=== PATIENT | male | born 1980 | race Hispanic/Latino ===

== ENCOUNTER 2018-05-11 17:10 | Inpatient (IN) | payer SELFPAY ==
[2018-05-11 18:15] LABS: Hemoglobin 13.6 g/dL (14.0-18.0); Mean Corpuscular HGB CONC 34.2 g/dL (32.0-36.0); Mean Corpuscular Hemoglobin 29.4 pg (27.0-31.0); Mean Platelet Volume 7.7 fL (7.4-10.4); Platelet Count 251 thou/uL (130-400); RBC Distribution Width 11.2 % (11.5-14.5); Red Blood Cell (RBC) Count 4.64 mill/uL (4.70-6.10); White Blood Cell (WBC) Count 6.8 thou/uL (4.8-10.8)
[2018-05-11 18:35] LABS: Band 13 % (5-11); Eosinophils 1 % (0-10); Lymphocytes 3 % (21-51); MDiff Complete? YES; Monocytes 2 % (0-10); Neutrophil 81 % (42-75); PLT Morphology Comment Appears Adequate
[2018-05-11 18:41] LABS: ALT (SGPT) 63 U/L (8-55); AST (SGOT) 52 U/L (5-34); Albumin 3.8 g/dL (3.5-5.0); Alkaline Phosphatase 102 U/L (40-150); Anion Gap 12 mmol/L (10-20); BUN (Urea Nitrogen) 12 mg/dL (8.9-20.6); Bilirubin, Total 1.5 mg/dL (0.2-1.2); Calc. Creatinine Clearance 0 mL/min (70-130); Calcium 9.3 mg/dL (7.8-10.44); Carbon Dioxide 25 mmol/L (22-29); Chloride 100 mmol/L (98-107); Estimated GFR-MDRD Greater than 90; Globulin 3.8 g/dL (2.4-3.5); Glucose 90 mg/dL (70-105); Potassium 4.2 mmol/L (3.5-5.1); Protein, Total 7.6 g/dL (6.0-8.3); Sodium 133 mmol/L (136-145)
--- NOTE | 2018-05-11 19:17 | RAD ---
RADIOGRAPH CHEST 1 VIEW: 05/11/18 HISTORY: 38-year-old male with fever. FINDINGS: The visualized lung daniel are clear. The cardiomediastinal silhouette and hilar shadows are normal. The lateral costophrenic angles are sharp. The osseous structures appear normal. There is no pneu mothorax. IMPRESSION: Negative. spencer [] POS: HARMEET
--- NOTE | 2018-05-11 19:20 | CT ---
CT BRAIN NONCONTRAST: 05/11/18 HISTORY: 38-year-old male with headache. FINDINGS: The ventricles are normal in size and configuration. There is no midline shift or any other mass eff ect. There is no evidence of acute intracranial hemorrhage, large cortical infarct, or extraaxial fl uid collection. The spann matter /white matter differentiation is maintained. The calvarium is intac t. The tympanomastoid cavities, and the upper portions of the paranasal sinuses included in these im ages, are grossly clear. IMPRESSION: Normal. jn [] POS: HARMEET
[2018-05-11 20:31] LABS: CKMB 0.1 ng/mL (0-6.6); Troponin I Less than 0.010 ng/mL (< 0.028)
[2018-05-11 20:57] LABS: Bilirubin Negative (Negative); Blood, Urine Negative (Negative); Clarity CLEAR (Clear); Glucose, Urine (Dipstick) Negative (Negative); Leukocyte Negative (Negative); Nitrite Negative (Negative); Protein, Urine (Dipstick) Negative (Neg-Trace); Specific Gravity, Urine 1.014 (1.002-1.036); Urobilinogen > or = 8.0 mg/dL (0.2-1.0)
[2018-05-11] MEDS ORDERED: Acetaminophen 500 MG TAB ONE (22:08)
[2018-05-11] MEDS ORDERED: Piperacillin/Tazobactam 4.5 GM VIAL ONE (22:08)
[2018-05-11 22:42] LABS: Hemoglobin 12.8 g/dL (14.0-18.0); Mean Corpuscular HGB CONC 34.5 g/dL (32.0-36.0); Mean Corpuscular Hemoglobin 29.9 pg (27.0-31.0); Mean Corpuscular Volume 86.7 fL (78.0-98.0); Mean Platelet Volume 7.6 fL (7.4-10.4); Platelet Count 221 thou/uL (130-400); RBC Distribution Width 11.2 % (11.5-14.5); Red Blood Cell (RBC) Count 4.27 mill/uL (4.70-6.10); White Blood Cell (WBC) Count 6.7 thou/uL (4.8-10.8)
[2018-05-11] MEDS ORDERED: Vancomycin HCl 1.25 GM in Sodium Chloride 0.9% 250 ML 250 ML IVPB SCH (22:45)
[2018-05-11 22:58] LABS: Band 12 % (5-11); Eosinophils 1 % (0-10); Lymphocytes 18 % (21-51); MDiff Complete? YES; Monocytes 14 % (0-10); Neutrophil 55 % (42-75)
--- NOTE | 2018-05-11 23:21 | ULT ---
ULTRASOUND ABDOMEN COMPLETE: DATE: 05/11/18 TIME: 10:52 p.m. HISTORY: 38-year-old female with elevated LFTs, anorexia, and fever of unknown origin. FINDINGS: Liver: Echogenicity within normal limits. The right lobe of the liver appears slightly prominent. Gallbladder: Wall thickness at upper limits of normal, 2 to 3 mm. No gallstone identified. No pericho lecystic fluid. Low intraluminal echoes which may represent sludge. Common duct: 3 mm Spleen: 14 x 5.5 x 5.5 cm with slightly lobulated hilum. Pancreas: Mostly obscured by shadowing from bowel gas. Kidneys: No hydronephrosis. Abdominal aorta: No aneurysm. Inferior vena cava: Unremarkable. IMPRESSION: 1. No evidence of cholelithiasis. 2. Possible small amount of gallbladder sludge. 3. Borderline or mild hepatomegaly. 4. Borderline splenomegaly. TRISTIAN Gasca POS: HARMEET
[2018-05-11] MEDS ORDERED: Sodium Chloride 0.9% 1,000 ML IV SCH (23:45)
[2018-05-12] MEDS ORDERED: diphenhydrAMINE 25 MG CAP PO SCH (00:15)
[2018-05-12 02:02] VITALS: BMI 28.1
[2018-05-12] MEDS ORDERED: Vancomycin HCl 1 GM in Premix Bag 1 BAG IVPB SCH (02:15)
[2018-05-12] MEDS ORDERED: Bisacodyl 5 MG TAB PO PRN (02:17)
[2018-05-12] MEDS: Sodium Chloride 0.9% 1,000 ML IV SCH ×2 (02:38→12:40)
--- NOTE | 2018-05-12 02:50 | HP ---
PRIMARY CARE PROVIDER: Anjelica Matute M.D. CHIEF COMPLAINT: Fevers. HISTORY OF PRESENT ILLNESS: Mr. Black is a pleasant 38-year-old gentleman who was seen at [facility] on 05/12/2018. He reports that 2 weeks ago, he started having fevers. He describes them as occurring on a daily bas is, as high as 103 degrees Fahrenheit. He cannot recall any factors that bring on the fevers or reli lou the fevers. He reports that he was working outdoors when it first started, and he attributed it to heat exertion. He also reports on and off headaches, but is unable to describe it further. He re ports that he has loss of appetite as well as 10-pound weight loss since his symptoms started. He al so started having nausea and vomiting over the last 24 hours. He denies any cough. He denies any ur inary symptoms. He denies any diarrhea. REVIEW OF SYSTEMS: All other systems reviewed and found to be negative. PAST MEDICAL HISTORY: None. PAST SURGICAL HISTORY: Right knee surgery and mole removal from the eye. SOCIAL HISTORY: The patient denies tobacco use, alcohol use or recreational drug use. FAMILY HISTORY: No family history of premature coronary artery disease. ALLERGIES: No known drug allergies. CURRENT MEDICATIONS: None. PHYSICAL EXAMINATION: GENERAL: Mr. Black is awake and alert, not in acute distress. VITAL SIGNS: Blood pressure is 98/61, pulse is 82, his breathing at rate of 16, and saturating 96% o n room air. Temperature is currently 99.3 degrees Fahrenheit. In the emergency room, he had T-max o f 101.5 degrees Fahrenheit. His pulse was also as high as 100 in the emergency room. EYES: No scleral icterus. No conjunctival pallor. ENT: Moist mucosal membranes, no oropharyngeal erythema or exudates. NECK: Supple, nontender, trachea is midline. RESPIRATORY: Accessory muscles of breathing are not active. Chest wall movements are symmetric bila terally. LUNGS: Clear to auscultation without wheeze, rhonchi or crepitations. CARDIOVASCULAR: S1 and S2 are heard, regular. Peripheral pulses palpable. No carotid bruit, no per icardial rub. ABDOMEN: Soft, nontender, bowel sounds are heard, no hepatomegaly, no splenomegaly. SKIN: No rashes or subcutaneous nodules. NEUROLOGIC: Cranial nerves II-XII intact, deep tendon reflexes 2+. No meningeal signs. MUSCULOSKELETAL: Power is 5/5 in all 4 extremities. LYMPHATIC: No cervical lymphadenopathy. PSYCHIATRIC: Normal mood, normal affect, patient is oriented to person, place, and time. LABORATORY DATA: Mr. Rosenthal labs and investigations were reviewed. He had a chest x-ray, which d id not show any pulmonary infiltrates. He also had noncontrast CT scan of the brain, which was vaughn l. He also had abdominal ultrasound, which showed possible small amount of gallbladder sludge, borde rline of mild hepatomegaly and borderline splenomegaly. He has white count 6800, of which 81% are ne utrophils and 13% are bands neutrophils, normocytic anemia with hemoglobin 13.6, normal platelet coun t, decreased sodium of 133, normal potassium, normal creatinine, normal lactic acid, normal uric acid , elevated total bilirubin of 1.5, elevated AST of 52, elevated ALT of 63, normal alkaline phosphatas e, elevated C-reactive protein of 15.47, normal albumin and ESR of 39. ASSESSMENT AND PLAN: Mr. Black is a pleasant 38-year-old gentleman who was seen at [facility] on 05/12/2018. His problem list includes: 1. Sepsis: Mr. Black's presentation meets the criteria for sepsis, source unknown as yet, but cou ld be in the blood stream. He will be admitted to the hospital for further management, including emp iric intravenous antibiotics. Given daily fevers, we will also check malaria smear. We will consult Infectious Disease Service for opinion and help with management. 2. Hyponatremia: Mild, we will recheck. 3. Abnormal liver function tests. LFTs are slightly abnormal. Abdominal ultrasound does not show a ny significant abnormalities. We will recheck his liver function tests and proceed as needed. The p atient denies any abdominal pain. Many thanks for allowing me to participate in your patient's care. Please feel free to contact me wi th any questions or concerns. LEVEL OF RISK: Moderate. LEVEL OF COMPLEXITY: Moderate.
[2018-05-12] MEDS: Piperacillin/Tazobactam 3.375 GM in Sodium Chloride 0.9% 100 ML IVPB SCH ×3 (03:54→09:22)
[2018-05-12] MEDS ORDERED: Piperacillin/Tazobactam 4.5 GM in Sodium Chloride 0.9% 100 ML IVPB SCH (04:00)
[2018-05-12 05:54] LABS: #Eosinphils 0.1 thou/uL (0.0-0.7); #Lymphocytes 1.7 thou/uL (1.20-3.40); #Monocytes 0.4 thou/uL (0.11-0.59); #Neutrophils 3.7 thou/uL (1.40-6.50); %Basophils 0.3 % (0.0-1.0); %Eosinophils 1.1 % (0.0-10.0); %Lymphocytes 28.5 % (21.0-51.0); %Monocytes 7.3 % (0.0-10.0); %Neutrophils 62.9 % (42.0-75.0); Hemoglobin 12.6 g/dL (14.0-18.0); Mean Corpuscular HGB CONC 34.1 g/dL (32.0-36.0); Mean Corpuscular Hemoglobin 29.7 pg (27.0-31.0); Mean Platelet Volume 7.9 fL (7.4-10.4); Platelet Count 213 thou/uL (130-400); RBC Distribution Width 11.4 % (11.5-14.5); Red Blood Cell (RBC) Count 4.23 mill/uL (4.70-6.10); White Blood Cell (WBC) Count 5.9 thou/uL (4.8-10.8)
[2018-05-12] MEDS ORDERED: Vancomycin HCl 1.25 GM in Sodium Chloride 0.9% 250 ML 250 ML IVPB SCH ×2 (06:00→11:00)
[2018-05-12 06:01] LABS: Anion Gap 9 mmol/L (10-20); BUN (Urea Nitrogen) 9 mg/dL (8.9-20.6); Calc. Creatinine Clearance 149 mL/min (70-130); Calcium 8.1 mg/dL (7.8-10.44); Carbon Dioxide 22 mmol/L (22-29); Chloride 111 mmol/L (98-107); Estimated GFR-MDRD Greater than 90; Glucose 102 mg/dL (70-105); Potassium 3.8 mmol/L (3.5-5.1); Sodium 138 mmol/L (136-145)
[2018-05-12 06:03] LABS: ALT (SGPT) 53 U/L (8-55); AST (SGOT) 46 U/L (5-34); Albumin 3.2 g/dL (3.5-5.0); Alkaline Phosphatase 91 U/L (40-150); Bilirubin, Direct 0.7 mg/dL (0.1-0.3); Bilirubin, Total 1.4 mg/dL (0.2-1.2); Protein, Total 6.4 g/dL (6.0-8.3)
[2018-05-12] MEDS: Enoxaparin Sodium 40 MG/0.4 ML SYRINGE SC SCH ×2 (09:17→09:27)
[2018-05-12] MEDS ORDERED: diphenhydrAMINE 25 MG CAP PO PRN (09:29)
--- NOTE | 2018-05-12 09:32 | PDOC.PN ---
- Subjective Encounter Start Date: 05/12/18 (f/u sepsis) Encounter Start Time: 09:30 Subjective: Pt c/o itching and rash that's new on chest, back, neck. Denies any cp/sob -: , or n/v/abd pain, or headache. Decreased appetite - Objective MAR Reviewed: Yes Vital Signs & Weight: Vital Signs (12 hours) Temp Pulse Resp BP Pulse Ox 05/12/18 07:35 99.9 F H 89 12 98/63 97 05/12/18 07:30 99.9 F H 89 12 05/12/18 04:00 97.6 F 70 16 90/50 L 98 05/11/18 23:30 99.3 F 82 16 98/61 96 Weight Weight 180 lb I&O: 05/11/18 05/12/18 05/13/18 06:59 06:59 06:59 Intake Total 1300 Balance 1300 Result Diagrams: 05/12/18 05:38 05/12/18 05:38 Phys Exam - Physical Examination Constitutional: NAD Respiratory: no wheezing, no rales, no rhonchi, clear to auscultation bilateral Cardiovascular: RRR, no significant murmur Gastrointestinal: soft, non-tender, no distention, positive bowel sounds Musculoskeletal: no edema Neurological: non-focal, moves all 4 limbs Psychiatric: normal affect Deviation from normal: erythematous patch with erythematous scattered and coalesced papules/plaque Dx/Plan (1) Fever Code(s): R50.9 - FEVER, UNSPECIFIED Status: Acute (2) Hyponatremia Code(s): E87.1 - HYPO-OSMOLALITY AND HYPONATREMIA Status: Resolved (3) Elevated liver function tests Code(s): R94.5 - ABNORMAL RESULTS OF LIVER FUNCTION STUDIES Status: Acute (4) Drug-induced skin rash Code(s): L27.0 - GEN SKIN ERUPTION DUE TO DRUGS AND MEDS TAKEN INTERNALLY Status: Acute - Plan * Fever with unknown source - hold zosyn and Vanc due to drug rash. Will communicate with Dr. Reyes about this and determine what abx to change to now or if Dr. Reyes will see patient soon. continue following cultures * Benadryl prn * Hyponatremia resolved * Elevated lft's - resolved today with mildly elevated bili - monitor * continue ivf for now as bp on the lower side * * dvt prophy - ambulatory. * gi prophy - not indicated * code status full * * reviewed plan with patient through son interpreting per patient's request. No questions or further needs at end of eval. * List zosyn and vanc as drug allergies *
[2018-05-12 18:11] LABS: HIV (1/2) Antibody/Antigen Non-Reactive (NonReactive)
--- NOTE | 2018-05-12 18:52 | PDOC.EVN ---
Event Note - Event Note Event Note: Pt taking adequate PO, voiding 4-5 times today. Will d/c IVF and monitor blood pressure. Discussed pt with Dr. Reyes - hold further antibiotics as presentation c/w viral process and rash likely part of it. Per Dr. Reyes - if pt doing well, can discharge tomorrow for outpatient f/u in Dr. Reyes office provided cx remain negative.
[2018-05-12] MEDS: Acetaminophen 325 MG TAB PO PRN (22:56)
[2018-05-13 05:28] LABS: #Eosinphils 0.1 thou/uL (0.0-0.7); #Lymphocytes 1.4 thou/uL (1.20-3.40); #Monocytes 0.3 thou/uL (0.11-0.59); #Neutrophils 3.2 thou/uL (1.40-6.50); %Basophils 0.2 % (0.0-1.0); %Eosinophils 1.3 % (0.0-10.0); %Lymphocytes 28.4 % (21.0-51.0); %Monocytes 6.2 % (0.0-10.0); Hemoglobin 11.7 g/dL (14.0-18.0); Mean Corpuscular HGB CONC 33.6 g/dL (32.0-36.0); Mean Corpuscular Hemoglobin 29.4 pg (27.0-31.0); Mean Corpuscular Volume 87.5 fL (78.0-98.0); Mean Platelet Volume 7.7 fL (7.4-10.4); Platelet Count 218 thou/uL (130-400); RBC Distribution Width 11.3 % (11.5-14.5)
[2018-05-13 05:37] LABS: Anion Gap 9 mmol/L (10-20); BUN (Urea Nitrogen) 8 mg/dL (8.9-20.6); Calc. Creatinine Clearance 157 mL/min (70-130); Calcium 8.6 mg/dL (7.8-10.44); Carbon Dioxide 26 mmol/L (22-29); Chloride 107 mmol/L (98-107); Estimated GFR-MDRD Greater than 90; Glucose 103 mg/dL (70-105); Potassium 3.7 mmol/L (3.5-5.1); Sodium 138 mmol/L (136-145)
--- NOTE | 2018-05-13 07:41 | CON ---
DATE OF CONSULTATION: 05/12/2018 REASON FOR CONSULTATION: Fever. HISTORY OF PRESENT ILLNESS: A 38-year-old otherwise healthy man who developed fever about 2 weeks before admission associated with initially plantar foot pain , right and left side. He went to the doctor and was given symptomatic medication. I believe ibuprofen did improve and ended up admitted. Initial findings include temperature 99.3, blood pressure 198/61, pulse 82, respirations 16, O2 sat 96%. The exam was fairly unremarkable. Initial values of test, white cell count 6.8, hemoglobin 13.6, platelets 251, 81% neutrophils, 13% bands. Chemistry: Sodium 133, creatinine 0.9, bilirubin 1.5, AST 52, ALT 63, alkaline phosphatase 102. CRP 15.47, albumin 3.8, globulin 3.8. Urinalysis remarkable for elevated urobilinogen. Malaria smear was negative. After admission, he was given broad-spectrum antimicrobial coverage, Zosyn and vancomycin. The next day after admission, a maculopapular rash in the trunk and abdomen was noticed and antimicrobials were discontinued. Currently, he is awake, feeling hot, some headaches intermittently sometimes they are pretty intense, but now there are mild 2/10. No diarrhea, no genitourinary symptoms. No dyspnea or chest pain, no cough or sputum production, no abdominal pain. No joint symptoms. The plantar pain has resolved. PAST MEDICAL HISTORY: Negative except for some mild complication following contact lens wear, believe he had a knee arthroscopy as well. 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 FAMILY HISTORY: Noncontributory. ALLERGIES: None. MEDICATION LIST: Now, we have a number of symptomatic medications given. PHYSICAL EXAMINATION: VITAL SIGNS: T-max 100.1. Other vital signs are normal. SKIN: Shows this maculopapular rash in the chest, in the abdomen and back area , none in the face or neck or appendicular structures just yet. No lymphadenopathy. HEENT: Ocular movements conjugate. Conjunctivae normal. Pupils are equal. Oral cavity normal. Teeth in fairly decent shape. NECK: Supple. No jugular vein distention or carotid bruits. LUNGS: With symmetric clear breath sounds. HEART: S1, S2, regular rate. No S3 or S4. ABDOMEN: Soft, not distended or tender. No ascites, bladder distention, no organomegaly. EXTREMITIES: No joint inflammatory activity. Pulses are 1+ in dorsalis pedis. He moves extremities equally. NEUROLOGIC: Cognitive function appears to be intact. LABORATORY DATA: White cell count 5.9, hemoglobin 12.6, platelets 213 with normal differential. Liver profile is improving. ASSESSMENT: Otherwise, healthy young man who has a febrile illness with some foot pain, which resolved headaches, probably secondary to the fever rather than meningitis and abnormal liver function tests. The CBC is fairly unremarkable. DISCUSSION: Differential diagnosis includes a viral illness, rule out bloodborne pathogens like hepatitis and HIV or dengue another possibility. Enterovirus would be another possibility. Autoimmune processes are less likely in the absence of arthralgias at this point in time. Viral meningitis is less likely since the headache is pretty mild. I would withhold all antimicrobial therapy at this point in time and submit serologies. I would expect improvement going forward in the next 2-3 days. FU in my clinic to review results of serologies and verify resolution of process. SNEHA
[2018-05-13] MEDS: Acetaminophen 325 MG TAB PO PRN (08:39)
[2018-05-13 09:08] LABS: Reference Lab Name LABCORP
[2018-05-13 15:30] VITALS: BP 100/65; TEMP 97.7
--- NOTE | 2018-05-14 14:28 | DIS ---
DATE OF ADMISSION: 05/11/2018 DATE OF DISCHARGE: 05/13/2018 DISCHARGE DIAGNOSES: 1. Viral syndrome. 2. Mild hyponatremia. 3. Minor drug eruption. HISTORY OF PRESENT ILLNESS: This patient is a 38-year-old male who had some symptoms of fever as an outpatient for about 2 weeks. He had further progress to some nausea type symptoms and was seen at [facility] outpatient clinic and referred to the emergency department. The patient was noted to be febrile; however, labs indicated white count of 6.8, mild low sodium at 133 and elevated liver enzymes at 52, AST and ALT of 63, total bilirubin of 1.5. C-reactive protein elevated at 15.47. His initial vital signs were temperature of 100.9 and a pulse of 76. He has a chest x-ray which was negative. The pat ient reported some degree of headache and a CT scan of the brain was also obtained at that time, whic h was also normal. HOSPITAL COURSE: The patient was originally admitted to the hospital and started on vancomycin and Z osyn. He had a consultation with Infectious Disease. Subsequent to the initial antibiotic doses, e patient had some mild erythematous reaction with some dermatitis. Therefore, these were discontinu ed. Infectious Disease felt the patient more likely had a viral syndrome. Antibiotics were held. B lood cultures were ultimately negative and it was felt this patient could be discharged to home to [facility] to have outpatient followup. The patient never had a temperature over 100.9 during his stay. He had no other significant lab abnormalities noted. He had repeat blood cultures obtained just latoya or to discharge. PHYSICAL EXAMINATION: VITAL SIGNS: At the time of discharge, his temperature was 97.8, pulse was 68, respirations 16, O2 s at 97% on room air, and blood pressure was 93/61. GENERAL: The patient was awake, alert, oriented, pleasant, cooperative. HEART: Regular rate and rhythm with no murmurs. LUNGS: Clear bilaterally. ABDOMEN: Soft, nontender. EXTREMITIES: Warm and dry. DISPOSITION: The patient is discharged to home. He is to have a regular diet and activity level. candy is to follow up with his PCP and Dr. Reyes as an outpatient. He will be on no medications other an p.r.n. antipyretics. The patient is encouraged to return to the emergency department should he pisano ve any major problems prior to follow up.
[2018-05-14 17:14] LABS: EBV Early Antigen (EA) IgG AB <9.0 U/mL (0.0-8.9); EBV VCA IgG >600.0 U/mL (0.0-17.9); EBV VCA IgM 91.2 U/mL (0.0-35.9)
[2018-05-17 15:18] LABS: Parvovirus B19 IgG ABS 0.3 index (0.0-0.8); Parvovirus B19 IgM ABS 1.2 index (0.0-0.8)
== END 2018-05-13 17:42 | disposition home or self-care (01) | DRG 866 ==
LOC: ERS 17:10 → SURG B 22:02
PROVIDERS: ADMIT Internal Medicine; ATTEND Internal Medicine
DX: B34.9 Viral infection, unspecified (principal); E87.1 Hypo-osmolality and hyponatremia; L27.0 Generalized skin eruption due to drugs and medicaments taken internally; I95.9 Hypotension, unspecified; R79.89 Other specified abnormal findings of blood chemistry
CPT/HCPCS: 36415; 70450; 71045; 76700; 80048; 80053; 80076; 81003; 82553; 83605; 83880; 84484; 84550; 85025; 85060; 85652; 86140; 86663; 86664; 86665; 86747; 87040; 87086; 87149; 87207; 87389; 87798; 96361; 96365; 96367; J1650; J2543; J3370; J7050